=== PATIENT | female | born 1965 | race Asian ===

== ENCOUNTER 2025-07-02 09:10 | Day surgery (SDC) | payer MEDICAID, SELFPAY ==
--- NOTE | 2025-07-01 06:36 | EKG_ITS ---
[facility] Test Date: 2025-07-01 Pat Name: JUAN JOSE LARA Department: Room: - Gender: Female Picker Packer: NEHAL : [id number] Requested By: Anna Bianchi Order Number: [id number] Reading MD: Anna Bianchi Measurements Intervals [place] Rate: 61 P: 29 MN: 133 QRS: 6 QRSD: 110 T: 53 QT: 407 QTc: 412 Interpretive Statements SINUS RHYTHM ST ELEVATION CONSISTENT WITH INJURY, PERICARDITIS, OR EARLY REPOLARIZATION [ST ELEVATION W/O NORMALLY INFLECTED T WAVE] No previous ECG available for comparison /[id number]/[email or web address]/[id number]
[2025-07-01 08:09] VITALS: BMI 25.7
[2025-07-01 09:48] LABS: Basophils # (Auto) 0.0 Thou/mm3 (0.0-0.2); Basophils % (Auto) 1 % (0-2.5); Eosinophils # (Auto) 0.1 Thou/mm3 (0.0-0.5); Eosinophils % (Auto) 2 % (0-10); Hematocrit 39.4 % (36.0-46.0); Hemoglobin 12.7 g/dL (12.0-16.0); Immature Granulocytes Auto 0.02 Thou/mm3 (0.00-0.00); Lymphocytes # (Auto) 2.3 Thou/mm3 (1.0-4.8); Lymphocytes % (Auto) 36 % (10-50); Mean Corpuscular HGB Conc 32.2 g/dl (31.0-37.0); Mean Corpuscular Hemoglobin 27.2 pg (25.0-35.0); Mean Corpuscular Volume 84 fL (80-100); Monocytes # (Auto) 0.3 Thou/mm3 (0.0-0.8); Monocytes % (Auto) 5 % (0-12); Neutrophils # (Auto) 3.7 Thou/mm3 (1.8-7.7); Neutrophils % (Auto) 57 % (37-80); Nucleated Red Blood Cell # 0.00 Thou/mm3 (0.00-0.00); Nucleated Red Blood Cell % 0 /100 WBC (0); Platelet Count 258 Thou/mm3 (140-440); RDW Standard Deviation 37.2 fL (36.4-46.3); Red Blood Count 4.67 Miln/mm3 (4.00-5.20); White Blood Count 6.6 Thou/mm3 (3.6-11.0)
[2025-07-01 10:10] LABS: Alanine Aminotransferase 9 U/L (10-49); Albumin, Serum 4.5 gm/dL (3.5-5.0); Albumin/Globulin Ratio 1.7 (1.2-2.2); Alkaline Phosphatase 81 U/L (46-116); Anion Gap 8 (7-16); Aspartate Amino Transferase 19 U/L (0-34); BUN/Creatinine Ratio 12 Ratio (12-20); Bilirubin,Total 0.8 mg/dL (0.3-1.2); Blood Urea Nitrogen 11 mg/dL (9-23); Calcium 10.1 mg/dL (8.3-10.6); Calcium (Corrected) 10.1 mg/dL (8.5-10.1); Carbon Dioxide 29.9 mMol/L (20.0-31.0); Chloride 108 mMol/L (98-107); Creatinine (Component) 0.9 mg/dL (0.6-1.3); Estimated Creatinine Clearance 53.3 mL/min (>60); Globulin 2.6 gm/dL (2.3-3.5); Glucose 95 mg/dL (74-106); Osmolality,Calculated 289 (275-295); Potassium 3.8 mMol/L (3.4-5.1); Sodium 146 mMol/L (136-145); Total Protein 7.1 gm/dL (5.7-8.2); eGFR > 60 See Note
[2025-07-02] VITALS (7 sets, daily range): BP systolic 151–178; BP diastolic 76–97; PULSE 65–87; RESP 18–20; TEMP 36.2–36.3; O2SAT 95–98; BMI 25.4
--- NOTE | 2025-07-02 12:24 | SUR.PHASEI ---
1224: Pt. AAOx4, vitals stable, breathing unlabored, no complaint of pain or nausea, dressing to left axillary CDI, no active bleed noted, report received from James ETIENNE and Radha JULINA
--- NOTE | 2025-07-02 12:32 | ESOP_ITS ---
Date of Procedure 07/02/25 Pre Op Diagnosis Left axilla soft tissue mass Left upper arm soft tissue mass Post Op Diagnosis Subfascial soft tissue mass of left axilla Subcutaneous soft tissue mass of left upper arm Procedure Excision of subfascial soft tissue mass from left axilla Excision of subcutaneous soft tissue mass from left upper arm Findings An approximately 4 cm subfascial lipomatous mass in the left axilla. An approximately 3 cm lipomatous subcutaneous soft tissue mass of left upper arm Procedure Description Patient brought into the operating room in supine position. After administration of general tracheal anesthesia, patient's left upper arm and axilla prepped and draped in standard surgical manner. She was noted to have a subcutaneous soft tissue mass in the medial aspect of left upper arm and an additional 1 in the left axilla. The procedure started on the left upper arm. After administration of local anesthesia an approximately 3 cm incision was made and dissection was deepened into soft tissue. Subcutaneous soft tissue mass was circumferentially dissected out surrounding tissue and excised. It was mariann uring to be approximately 3 cm in diameter and lipomatous in nature. The wound was washed and irrigated and hemostasis achieved using electrocautery. Subcutaneous tissue closed with interrupted sutures using 3-0 Vicryl and the incision was closed with 4-0 Monocryl in subcuticular fashion. I then turned my attention to patient's left axillary mass. After administration of local anesthesia a 4 cm incision was made and dissection was deepened into soft tissue. The mass was noted to be subfascial. The axillary fascia was divided and the underlying mass was circumferentially dissected out surrounding tissue. There was no evidence of lymphadenopathy. The mass was lipomatous in nature and approximately 4 cm in diameter. The wound was washed and irrigated and hemostasis achieved using electrocautery. Axillary fascia reapproximated with interrupted sutures using 2-0 Vicryl. Subcutaneous tissue closed with interrupted sutures using 3-0 Vicryl and the incision was closed with 4-0 Monocryl in subcuticular fashion. Dermabond and sterile pressure dressings applied on both incisions. Patient tolerated procedure well. She was extubated, breathing spontaneously and without difficulty and was transferred to postanesthesia care in stable condition. Instruments, needles and sponge counts were reported to be correct x 2. Anesthesia GETA and local Pathology / specimen Other (Left axillary soft tissue mass. Left upper arm soft tissue mass) Estimated Blood Loss 5 Condition Stable Disposition PACU Surgeon Anna Bianchi MD Surgical Staff Operation Date: 07/02/25 13:15 Case Staff MILIEU THERAPIST: Jam Gomez
[2025-07-02] MEDS: fentaNYL CIT INJ 50 mCg/ML AMP 2ML IVP (12:34)
--- NOTE | 2025-07-02 13:10 | SUR.PHASEII ---
1310: Pt. AAOx4, vitals stable, breathing unlabored, no complaint of pain or nausea, dressing to left axillary CDI, no active bleed noted, pt. tolerated sips of water well, pt. ambulated to wheelchair with steady gait and no assist, no complications. Gave discharge instructions to the pt. and her ride, both verbalized understanding and had no further questions. Pt. left with all personal belongings.
== END 2025-07-02 13:10 | disposition home or self-care (01) ==
PROVIDERS: Anesthesiology; PCP Family Medicine; Referring Provider Surgery; Visit Provider Surgery
PROC: (CPT 24071; principal; 2025-07-02 13:00)
DX: D17.22 Benign lipomatous neoplasm of skin and subcutaneous tissue of left arm (principal); Z01.810 Encounter for preprocedural cardiovascular examination
CPT/HCPCS: 24071; 36415; 80053; 85025; 93005; A4649; J0131; J0690; J1885; J2250; J2704; J3010; J3490; J1920